=== PATIENT | female | born 1955 | race Hispanic/Latino ===

== ENCOUNTER → 2022-06-13 | Outpatient (CLI) | payer MEDICARE | END | disposition home or self-care (01) | LOC: RAH 10:00 | PROVIDERS: ATTEND Nurse Practitioner | DX: S83.241A Other tear of medial meniscus, current injury, right knee, initial encounter (principal); S83.281A Other tear of lateral meniscus, current injury, right knee, initial encounter; M17.11 Unilateral primary osteoarthritis, right knee; X58.XXXA Exposure to other specified factors, initial encounter; Y93.89 Activity, other specified; Y92.89 Other specified places as the place of occurrence of the external cause; Y99.8 Other external cause status | CPT/HCPCS: 73721 ==

== ENCOUNTER → 2022-11-15 | Outpatient (CLI) | payer MEDICARE | END | disposition home or self-care (01) | LOC: RAH 07:33 | PROVIDERS: ATTEND Family Medicine | DX: E04.1 Nontoxic single thyroid nodule (principal); R10.11 Right upper quadrant pain; E89.0 Postprocedural hypothyroidism | CPT/HCPCS: 76536; 76700 ==

== ENCOUNTER → 2022-12-12 | Outpatient (CLI) | payer MEDICARE ==
[2022-12-12 11:11] LABS: BASOPHILS % (AUTO) 0.5 % (0.0-5.0); EOSINOPHILS % (AUTO) 3.6 % (0.0-8.0); HEMATOCRIT 37.9 % (36-48); LYMPHOCYTES % (AUTO) 23.1 % (21.0-51.0); MEAN CORPUSCULAR HEMOGLOBIN 26.6 pg (27.0-33.0); MEAN CORPUSCULAR HGB CONC 31.9 g/dL (32.0-36.0); MEAN CORPUSCULAR VOLUME 83.3 fL (79-99); MONOCYTES % (AUTO) 6.9 % (3.0-13.0); NEUTROPHILS % (AUTO) 65.3 % (40.0-77.0); PLATELET COUNT (AUTO) 316 K/uL (130-400); RED BLOOD CELL COUNT(AUTO) 4.55 MIL/uL (4.00-5.50); RED CELL DISTRIBUTION WIDTH 13.1 % (11.0-15.5); WHITE BLOOD COUNT (AUTO) 8.8 K/uL (4.8-10.8)
== END | disposition home or self-care (01) ==
LOC: LAB 08:30
PROVIDERS: ATTEND Internal Medicine Gastroenterology
DX: Z01.818 Encounter for other preprocedural examination (principal); R93.3 Abnormal findings on diagnostic imaging of other parts of digestive tract
CPT/HCPCS: 36415; 82565; 84520; 85025

== ENCOUNTER → 2022-12-16 | Outpatient (CLI) | payer MEDICARE ==
[~2022-12-16] MED LIST: GADOTERATE MEGLUMINE 10 MMOL/20 ML VIAL IV ONE
== END | disposition home or self-care (01) ==
LOC: RAH 07:28
PROVIDERS: ATTEND Internal Medicine Gastroenterology
DX: K80.20 Calculus of gallbladder without cholecystitis without obstruction (principal); R93.3 Abnormal findings on diagnostic imaging of other parts of digestive tract
CPT/HCPCS: 74183; A9575

== ENCOUNTER 2023-04-07 05:01 | Observation (INO) | payer MEDICARE ==
[2023-04-02 11:23] VITALS: BP 148/73; PULSE 68; RESP 15
[~2023-04-07] VITALS: Ht 160 cm; Wt 85.3 kg
[2023-04-07] VITALS (28 sets, daily range): BP systolic 106–146; BP diastolic 54–81; PULSE 55–81; RESP 13–18; O2SAT 94–100
[~2023-04-07 05:01] MED LIST changes: +ALEN70TA80 PO; +ATOR10TA69 PO; +CHOL500051 PO; +DAPA10TA PO; -GADOTERATE MEGLUMINE 10 MMOL/20 ML VIAL IV ONE; +GLIM2TAB30 PO; +LEVO125T11 PO; +LOSA25TA41 PO; +METF-446 PO; +ROPI2TAB29 PO; +ROPI2TAB53 PO
[2023-04-07] MEDS ORDERED: CEFAZOLIN SODIUM 2 GM VIAL ONE (06:06)
[2023-04-07] MEDS ORDERED: 0.9%NACL 1000ML 1,000 ML IV ONE (06:07)
[2023-04-07] MEDS ORDERED: GENTAMICIN SULFATE 80 MG/2 ML VIAL ONE (06:29)
[2023-04-07] MEDS ORDERED: TRANEXAMIC ACID 1000MG/10ML ONE (06:29)
[2023-04-07] MEDS ORDERED: CEFAZOLIN SODIUM 1 GM VIAL ONE (06:29)
[2023-04-07] MEDS ORDERED: 0.9%NACL 100ML 48.45 ML, ROPIVACAINE 0.5% 5MG/ML 30ML 246.25 MG, KETOROLAC TROMETHAMINE... IV PRN ×5 (07:30)
[2023-04-07] MEDS ORDERED: KETAMINE 50MG/ML SYRINGE 50 MG/ML DISP.SYRIN ONE (07:32)
[2023-04-07] MEDS ORDERED: MIDAZOLAM HCL 1 MG/ML 2ML VIAL ONE ×2 (07:34→10:04)
[2023-04-07] MEDS ORDERED: PROPOFOL 10 MG/ML 20ML VIAL IV ONE ×3 (08:30→09:26)
[2023-04-07] MEDS ORDERED: TRANEXAMIC ACID 1000MG/10ML IV ONE (09:25)
[2023-04-07] MEDS ORDERED: HYDROMORPHONE PCA 10 MG/50 ML 50 ML IV PRN (12:30)
[2023-04-07] MEDS: 0.9%NACL 1000ML 1,000 ML IV SCH ×2 (12:30→22:35)
[2023-04-07] MEDS ORDERED: ONDANSETRON 4MG INJ IVP PRN (12:30)
[2023-04-07] MEDS ORDERED: DIPHENOXYLATE HCL/ATROPINE 2.5/0.025 MG TAB PO PRN (12:30)
[2023-04-07] MEDS ORDERED: ACETAMINOPHEN 325 MG TAB PO PRN ×2 (12:30)
[2023-04-07] MEDS ORDERED: ACETAMINOPHEN 325 MG TAB PO SCH (12:30)
[2023-04-07] MEDS ORDERED: MAG/ALUM/SIMETH 30 ML UDCUP PO PRN (12:30)
[2023-04-07] MEDS ORDERED: LACTULOSE 20 GM/30 ML UDCUP PO PRN (12:30)
[2023-04-07] MEDS ORDERED: DIPHENHYDRAMINE HCL 25 MG CAPSULE PO SCH (12:30)
[2023-04-07] MEDS ORDERED: DIPHENHYDRAMINE HCL 25 MG CAPSULE PO PRN (12:30)
[2023-04-07] MEDS ORDERED: LOSA1TAB42 PO (13:00)
[2023-04-07] MEDS ORDERED: ROPINIROLE HCL 1 MG TABLET PO ONE (14:30)
[2023-04-07] MEDS ORDERED: COMPOUND IV REFRIGERATED 1 EACH IVSOLN MISC PRN (15:00)
[2023-04-07] MEDS ORDERED: CEFAZOLIN SODIUM 2 GM VIAL IVPB SCH (18:00)
[2023-04-07] MEDS: CEFAZOLIN SODIUM 3 GM in DEXTROSE 5%-WATER 100 ML IVPB SCH (18:54)
[2023-04-07] MEDS ORDERED: ROPINIROLE HCL 1 MG TABLET PO SCH (21:00)
[2023-04-07] MEDS ORDERED: NON-FORMULARY MEDICATION 1 EACH (Ropinirole HCl 2 MG) PO SCH (21:00)
[2023-04-07] MEDS ORDERED: NON-FORMULARY MEDICATION 1 EACH (Metformin HCl 1,000 MG) PO SCH (21:00)
[2023-04-08] MEDS: CEFAZOLIN SODIUM 3 GM in DEXTROSE 5%-WATER 100 ML IVPB SCH (01:59)
[2023-04-08 03:48] LABS: HEMATOCRIT 33.3 % (36-48); MEAN CORPUSCULAR HEMOGLOBIN 27.5 pg (27.0-33.0); MEAN CORPUSCULAR HGB CONC 32.7 g/dL (32.0-36.0); MEAN CORPUSCULAR VOLUME 83.9 fL (79-99); RED BLOOD CELL COUNT(AUTO) 3.97 MIL/uL (4.00-5.50); WHITE BLOOD COUNT (AUTO) 9.6 K/uL (4.8-10.8)
[2023-04-08 04:07] VITALS: BP 121/55; PULSE 87; RESP 16
[2023-04-08 04:07] LABS: CREATININE 1.3 mg/dL (0.5-1.5); POTASSIUM 3.9 mmol/L (3.5-5.1)
[2023-04-08] MEDS ORDERED: LEVOTHYROXINE 125 MCG TABLET PO SCH ×2 (06:00→07:30)
[2023-04-08 07:55] VITALS: BP 119/56; PULSE 87; RESP 20
[2023-04-08 08:00] VITALS: O2SAT 97
[2023-04-08] MEDS ORDERED: ATORVASTATIN 10 MG TABLET PO SCH (09:00)
[2023-04-08] MEDS ORDERED: ROPINIROLE HCL 1 MG TABLET PO SCH (09:00)
[2023-04-08] MEDS ORDERED: HYDROCHLOROTHIAZIDE 25 MG TABLET PO SCH (09:00)
[2023-04-08] MEDS ORDERED: NON-FORMULARY MEDICATION 1 EACH (Losartan/Hydrochlorothiazide (Losartan-Hctz 100-12.5 mg T PO SCH (09:00)
[2023-04-08] MEDS ORDERED: LOSARTAN 100 MG TABLET PO SCH (09:00)
[2023-04-08] MEDS ORDERED: GLIMEPIRIDE 2 MG TABLET PO SCH (09:00)
[2023-04-08] MEDS ORDERED: RIVAROXABAN 10 MG TABLET PO SCH (09:00)
[2023-04-08] MEDS ORDERED: (Dapagliflozin Propanediol (Farxiga) 10 MG) PO SCH (09:00)
[2023-04-08] MEDS ORDERED: ROPINIROLE HCL 1 MG PO SCH (09:00)
[2023-04-08] MEDS: TRAMADOL HCL 50 MG TABLET PO PRN ×2 (09:29→14:54)
[2023-04-08] MEDS: 0.9%NACL 1000ML 1,000 ML IV SCH ×2 (09:32→13:32)
[2023-04-08 11:25] VITALS: BP 134/58; PULSE 89; RESP 20
[2023-04-08 15:05] VITALS: BP 115/65; PULSE 98; RESP 20
[2023-04-14] MEDS ORDERED: (Alendronate Sodium 70 MG) PO SCH (09:00)
== END 2023-04-08 17:45 ==
LOC: DAH 05:01 → DAHIP 05:02 → 4DH 12:15
PROVIDERS: ADMIT Orthopaedic Surgery; ATTEND Orthopaedic Surgery
DX: M17.12 Unilateral primary osteoarthritis, left knee (principal); E11.9 Type 2 diabetes mellitus without complications; I10 Essential (primary) hypertension; E66.01 Morbid (severe) obesity due to excess calories; E78.5 Hyperlipidemia, unspecified; E03.9 Hypothyroidism, unspecified; Z79.01 Long term (current) use of anticoagulants; Z68.33 Body mass index [BMI] 33.0-33.9, adult
CPT/HCPCS: 87641; 27447; 96365; 96366 ×2; 96367; 82948 ×7; 97161; 97012; 97116 ×3; 97530 ×7; 80048; 85027; 36415; A6260; G0378 ×26; A4663; J7030 ×3; J7120; A4215 ×2; A4649 ×4; J0690 ×3; J3490 ×3; J1170; J1580; J2250 ×2; J7060; J2704 ×3; A6223; C1763 ×2; C1776; A4223; A4222; A4221; A6450

== ENCOUNTER → 2023-11-25 | Outpatient (CLI) | payer MEDICARE ==
[~2023-11-25] MED LIST changes: +LOSA1TAB42 PO; -LOSA25TA41 PO
== END | disposition home or self-care (01) ==
LOC: RAH 11:03
PROVIDERS: ATTEND Family Medicine
DX: E04.1 Nontoxic single thyroid nodule (principal)
CPT/HCPCS: 76536

== ENCOUNTER → 2025-01-12 | Outpatient (CLI) | payer MEDICARE ==
--- NOTE | 2025-01-13 06:29 | HMCIMG ---
EXAMINATION: ULTRASOUND OF THE ABDOMEN WITH COLOR DOPPLER. CLINICAL HISTORY: Right upper quadrant pain. COMPARISON: Ultrasound of the abdomen dated 11/15/2022 and MRCP dated 12/16/2022. TECHNIQUE: Real-time grayscale ultrasound images of the abdomen. In addition, color Doppler is medically necessary to perform in order to evaluate vascularity and blood flow. FINDINGS: Liver: Normal in caliber, the right hepatic lobe measures 14.4 cm in the craniocaudal dimension. There is increased echogenicity of the hepatic parenchyma. There is no focal hepatic abnormality or intrahepatic biliary ductal dilatation. There is normal spectral Doppler of the main portal vein. Gallbladder: There is normal anterior wall thickness (0.3 cm). There are calculi with wall echo shadow complex. Common bile duct is normal in caliber, measuring 0.5 cm. Spleen is normal in caliber and measures 10.9 x 1.9 x 2.0 cm in craniocaudal, AP and transverse dimensions respectively. No focal lesions. Pancreas: Normal in caliber and echotexture. No calcification or dilated pancreatic duct. The kidneys are normal in caliber, the right kidney measures 10.4 x 4.8 x 4.0 cm and the left kidney measures 11.1 x 5.7 x 4.4 cm in craniocaudal, AP, and transverse dimensions respectively. There is normal renal cortical thickness, and cortical echogenicity. There is no renal calculus or hydronephrosis. The proximal, mid, and distal aspects of abdominal aorta are normal in caliber measuring 2.0 cm, 1.7 cm, and 1.4 cm in the AP dimension respectively. Visualized aspects of the inferior vena cava are unremarkable. IMPRESSION: Hepatic steatosis. Cholelithiasis with wall echo shadow complex. This is likely due to a stone filled gallbladder. The shadowing limits evaluation of the gallbladder. If indicated, a nuclear medicine hepatobiliary study can be performed. /[place]
== END | disposition home or self-care (01) ==
LOC: RAH 07:18
PROVIDERS: ATTEND Family Medicine
DX: K76.0 Fatty (change of) liver, not elsewhere classified (principal); K80.20 Calculus of gallbladder without cholecystitis without obstruction; R10.11 Right upper quadrant pain; R11.0 Nausea
CPT/HCPCS: 76700